=== PATIENT | female | born 1995 | race Caucasian/White ===

== ENCOUNTER 2017-03-12 21:40 | Emergency (ER) | payer SELFPAY ==
[2017-03-12 23:08] LABS: URINE HCG POC HCG POSITIVE (Negative)
[2017-03-12 23:13] LABS: BILIRUBIN,URINE NEGATIVE (NEG); CLARITY,URINE CLEAR; COLOR,URINE YELLOW; GLUCOSE,URINE NEGATIVE (NEG); NITRITE,URINE NEGATIVE (NEG); PH,URINE 7.5; PROTEIN,URINE NEGATIVE (NEG-TRACE); UROBILINOGEN,URINE 0.2 mg/dL (0.2 mg/dL)
[2017-03-12 23:20] LABS: RBC,URINE 0 /HPF (0-2); SQUAMOUS EPITHELIAL CELL,UR FEW /LPF; WBC,URINE OCC /HPF (0-4)
[2017-03-12 23:21] LABS: BACTERIA,URINE FEW /HPF (0-FEW)
[2017-03-12] MEDS: ACETAMINOPHEN 500 MG TABLET PO (23:31)
== END 2017-03-12 23:37 | disposition home or self-care (01) ==
LOC: ER 21:40
DX: O99.519 Diseases of the respiratory system complicating pregnancy, unspecified trimester (principal); J06.9 Acute upper respiratory infection, unspecified; O26.899 Other specified pregnancy related conditions, unspecified trimester; R30.0 Dysuria; Z3A.00 Weeks of gestation of pregnancy not specified
CPT/HCPCS: 81001; 81025; 99283